=== PATIENT | male | born 1975 | race Hispanic/Latino ===

== ENCOUNTER 2019-03-21 12:03 | Emergency (ER) | payer OTHER ==
[~2019-03-21 12:03] MED LIST: FOLI1TAB15 PO; LIB25 PO; MVIT PO; THIA50TA2 PO
[2019-03-21] MEDS ORDERED: ASPIRIN 325 MG TABLET ONE (12:20)
[2019-03-21 12:32] LABS: BASOPHILS % (AUTO) 0.4 % (0.0-5.0); HEMATOCRIT 42.1 % (42-54); LYMPHOCYTES % (AUTO) 10.6 % (21.0-51.0); MEAN CORPUSCULAR HEMOGLOBIN 28.4 pg (27.0-33.0); MEAN CORPUSCULAR HGB CONC 34.4 g/dL (32.0-36.0); MEAN CORPUSCULAR VOLUME 82.5 fL (79-99); MONOCYTES % (AUTO) 6.2 % (3.0-13.0); NEUTROPHILS % (AUTO) 82.8 % (40.0-77.0); NUCLEATED RED BLOOD CELLS 0.1 % (0.0-0.19); PLATELET COUNT (AUTO) 163 K/uL (130-400); RED CELL DISTRIBUTION WIDTH 13.4 % (11.0-15.5)
[2019-03-21] MEDS ORDERED: SODIUM CHLORIDE 0.9% 1000ML 1,000 ML IV ONE (12:35)
[2019-03-21 12:42] LABS: INR 1.02 (0.85-1.15); PROTHROMBIN TIME 10.7 SEC (9.6-11.6)
[2019-03-21 12:44] LABS: APPEARANCE,URINE Clear (CLEAR); BILIRUBIN,URINE Negative (NEGATIVE); COLOR,URINE Yellow (YELLOW); GLUCOSE, URINE (UA) Negative (NEGATIVE); KETONES,URINE Negative (NEGATIVE); LEUKOCYTE ESTERASE ,URINE Negative (NEGATIVE); NITRATE,URINE Negative (NEGATIVE); OCCULT BLOOD,URINE Negative (NEGATIVE); PROTEIN,URINE Negative (NEGATIVE)
[2019-03-21 12:46] LABS: CREATININE 1.1 mg/dL (0.5-1.5); POTASSIUM 2.7 mmol/L (3.5-5.1)
[2019-03-21 12:54] LABS: AMPHET/METH SCREEN,URINE NEGATIVE (NEGATIVE); BARBITURATE SCREEN, URINE NEGATIVE (NEGATIVE); BENZODIAZEPINES SCREEN,URINE NEGATIVE (NEGATIVE); CANNABINOID SCREEN,URINE POSITIVE (NEGATIVE); COCAINE SCREEN,URINE NEGATIVE (NEGATIVE); OPIATE SCREEN,URINE NEGATIVE (NEGATIVE); PHENCYCLIDINE SCREEN,URINE NEGATIVE (NEGATIVE)
[2019-03-21 13:02] LABS: ALBUMIN 3.9 g/dL (3.5-5.0); BILIRUBIN,TOTAL 0.9 mg/dL (0.2-1.0)
[2019-03-21] MEDS ORDERED: POTASSIUM BICARB/CIT AC 25 MEQ TABLET.EFF ONE (13:02)
[2019-03-21] MEDS ORDERED: MAGNESIUM 2GM PREMIX 50ML 50 ML IV ONE (13:02)
[2019-03-21 13:04] LABS: ACETAMINOPHEN < 1 mcg/mL (10-29); SALICYLATE < 2.8 mg/dL (2.8-20.0)
[2019-03-21] MEDS ORDERED: DIAZEPAM 5 MG TABLET ONE (14:31)
== END 2019-03-21 16:47 | disposition home or self-care (01) ==
LOC: EDH 12:03
DX: F10.10 Alcohol abuse, uncomplicated (principal); R07.89 Other chest pain; R11.10 Vomiting, unspecified; F41.9 Anxiety disorder, unspecified; F12.10 Cannabis abuse, uncomplicated; Z90.49 Acquired absence of other specified parts of digestive tract; Z72.0 Tobacco use; Y90.9 Presence of alcohol in blood, level not specified
CPT/HCPCS: 36415; 71045; 80053; 80305; 81003; 82550; 83874; 84484; 85025; 85610; 85730; 93005; 96361; 96365; 99285; G0480 ×2; G0481; J3475; J7030

== ENCOUNTER 2019-12-24 08:30 | Emergency (ER) | payer OTHER, SELFPAY ==
[2019-12-24] MEDS ORDERED: SODIUM CHLORIDE 0.9% 1000ML 1,000 ML IV ONE (09:04)
[2019-12-24] MEDS ORDERED: ONDANSETRON HCL 4 MG/2 ML VIAL ONE (09:04)
[2019-12-24 09:45] LABS: APPEARANCE,URINE Clear (CLEAR); BILIRUBIN,URINE Negative (NEGATIVE); COLOR,URINE Yellow (YELLOW); GLUCOSE, URINE (UA) Negative (NEGATIVE); KETONES,URINE Trace mg/dL (NEGATIVE); LEUKOCYTE ESTERASE ,URINE Negative (NEGATIVE); NITRATE,URINE Negative (NEGATIVE); OCCULT BLOOD,URINE Negative (NEGATIVE); PH,URINE 5.5 (5.0-8.0); PROTEIN,URINE Trace mg/dL (NEGATIVE)
[2019-12-24 09:52] LABS: AMPHET/METH SCREEN,URINE NEGATIVE (NEGATIVE); BARBITURATE SCREEN, URINE NEGATIVE (NEGATIVE); BENZODIAZEPINES SCREEN,URINE NEGATIVE (NEGATIVE); CANNABINOID SCREEN,URINE POSITIVE (NEGATIVE); COCAINE SCREEN,URINE NEGATIVE (NEGATIVE); OPIATE SCREEN,URINE NEGATIVE (NEGATIVE); PHENCYCLIDINE SCREEN,URINE NEGATIVE (NEGATIVE)
[2019-12-24 10:05] LABS: INR 0.94 (0.85-1.15); PARTIAL THROMBOPLASTIN TIME 27.9 SEC (26.3-35.5); PROTHROMBIN TIME 10.2 SEC (9.6-11.6)
[2019-12-24 10:13] LABS: BASOPHILS % (AUTO) 0.9 % (0.0-5.0); EOSINOPHILS % (AUTO) 0.7 % (0.0-8.0); HEMATOCRIT 43.3 % (42-54); MEAN CORPUSCULAR HEMOGLOBIN 28.7 pg (27.0-33.0); MEAN CORPUSCULAR HGB CONC 34.6 g/dL (32.0-36.0); MONOCYTES % (AUTO) 8.5 % (3.0-13.0); NEUTROPHILS % (AUTO) 59.7 % (40.0-77.0); PLATELET COUNT (AUTO) 214 K/uL (130-400); RED BLOOD CELL COUNT(AUTO) 5.22 MIL/uL (4.50-6.20); RED CELL DISTRIBUTION WIDTH 12.4 % (11.0-15.5); WHITE BLOOD COUNT (AUTO) 5.4 K/uL (4.8-10.8)
[2019-12-24 10:16] LABS: BACTERIA,URINE Rare /HPF (None Seen); RBC,URINE 0-1 /HPF (0-1); SQUAMOUS EPITHELIAL CELL,UR Rare /HPF (0-2); WBC,URINE 0-1 /HPF (0-1)
[2019-12-24 10:22] LABS: ALBUMIN 3.9 g/dL (3.5-5.0); BILIRUBIN,TOTAL 0.8 mg/dL (0.2-1.0); CREATININE 1.1 mg/dL (0.5-1.5)
[2019-12-24] MEDS ORDERED: POTASSIUM CHLORIDE 20 MEQ ERTAB PO ONE (10:33)
[2019-12-24] MEDS ORDERED: SODIUM CHLORIDE 0.9% 1000ML 2,000 ML IV ONE (10:34)
[2019-12-24] MEDS ORDERED: DIPHENHYDRAMINE HCL 25 MG CAPSULE ONE (10:49)
== END 2019-12-24 14:41 | disposition home or self-care (01) ==
LOC: EDH 08:30
DX: F10.129 Alcohol abuse with intoxication, unspecified (principal); M62.82 Rhabdomyolysis; R11.2 Nausea with vomiting, unspecified; F41.9 Anxiety disorder, unspecified; F32.9 Major depressive disorder, single episode, unspecified; F12.10 Cannabis abuse, uncomplicated; Z90.49 Acquired absence of other specified parts of digestive tract; Z79.899 Other long term (current) drug therapy
CPT/HCPCS: 36415; 80053; 80305; 81001; 82550 ×2; 83690; 84484; 85025; 85610; 85730; 96361; 96374; 99285; G0480; J2405; J7030 ×2; Q0163

== ENCOUNTER 2020-02-09 07:21 | Emergency (ER) | payer SELFPAY ==
[2020-02-09] MEDS ORDERED: PROMETHAZINE HCL 25 MG/ML 1ML AMPULE IM ONE (07:22)
[2020-02-09] MEDS ORDERED: SODIUM CHLORIDE IRRIG SOLUTION 1,000 ML IR ONE (07:22)
[2020-02-09 07:48] LABS: BASOPHILS % (AUTO) 0.7 % (0.0-5.0); EOSINOPHILS % (AUTO) 2.7 % (0.0-8.0); HEMATOCRIT 46.8 % (42-54); MEAN CORPUSCULAR HEMOGLOBIN 28.4 pg (27.0-33.0); MEAN CORPUSCULAR HGB CONC 34.8 g/dL (32.0-36.0); MEAN CORPUSCULAR VOLUME 81.5 fL (79-99); MONOCYTES % (AUTO) 8.1 % (3.0-13.0); NEUTROPHILS % (AUTO) 68.1 % (40.0-77.0); PLATELET COUNT (AUTO) 241 K/uL (130-400); RED BLOOD CELL COUNT(AUTO) 5.74 MIL/uL (4.50-6.20)
[2020-02-09 07:58] LABS: APPEARANCE,URINE CLEAR (CLEAR); BILIRUBIN,URINE SMALL (NEGATIVE); COLOR,URINE YELLOW (YELLOW); GLUCOSE, URINE (UA) NEGATIVE (NEGATIVE); KETONES,URINE 15 mg/dL (NEGATIVE); LEUKOCYTE ESTERASE ,URINE NEGATIVE (NEGATIVE); NITRATE,URINE NEGATIVE (NEGATIVE); OCCULT BLOOD,URINE MODERATE (NEGATIVE); PROTEIN,URINE 100 mg/dL (NEGATIVE); UROBILINOGEN,URINE 0.2 mg/dL (0.2-1.0)
[2020-02-09 08:01] LABS: CARBON DIOXIDE 26 mmol/L (21-32); CHLORIDE 92 mmol/L (101-111); CREATININE 1.3 mg/dL (0.5-1.5); GLOMERULAR FILTR. RATE CALC 63 mL/min (>60); GLUCOSE,RANDOM 160 mg/dL (70-105); POTASSIUM 4.1 mmol/L (3.5-5.1); SODIUM SERUM 133 mmol/L (136-145); UREA NITROGEN, BLOOD 13 mg/dL (7-18)
[2020-02-09 08:05] LABS: ALANINE AMINOTRANSFERASE 31 U/L (12-78); ALBUMIN 4.6 g/dL (3.5-5.0); ALCOHOL, BLOOD 162 mg/dL (0-10); ASPARTATE AMINOTRANSFERASE 55 U/L (10-37); BILIRUBIN,TOTAL 1.3 mg/dL (0.2-1.0); TOTAL PROTEIN, SERUM 8.9 g/dL (6.0-8.3)
[2020-02-09 08:06] LABS: AMPHET/METH SCREEN,URINE NEGATIVE (NEGATIVE); BARBITURATE SCREEN, URINE NEGATIVE (NEGATIVE); BENZODIAZEPINES SCREEN,URINE NEGATIVE (NEGATIVE); CANNABINOID SCREEN,URINE POSITIVE (NEGATIVE); COCAINE SCREEN,URINE NEGATIVE (NEGATIVE); OPIATE SCREEN,URINE NEGATIVE (NEGATIVE); PHENCYCLIDINE SCREEN,URINE NEGATIVE (NEGATIVE)
[2020-02-09 08:06] LABS: ACETAMINOPHEN < 1 mcg/mL (10-29); SALICYLATE < 2.8 mg/dL (2.8-20.0)
[2020-02-09 08:09] LABS: RBC,URINE 0-1 /HPF (0-1); WBC,URINE 0-1 /HPF (0-1)
[2020-02-09 08:10] LABS: AMORPHOUS SEDIMENT,UR Moderate /LPF (None Seen); BACTERIA,URINE Few /HPF (None Seen); MUCUS,URINE Many LPF (None Seen); SQUAMOUS EPITHELIAL CELL,UR Rare /HPF (0-2)
[2020-02-09] MEDS ORDERED: ONDANSETRON HCL 4 MG/2 ML VIAL ONE ×2 (08:55→11:58)
== END 2020-02-09 14:39 | disposition home or self-care (01) ==
LOC: EDH 07:21
DX: K29.00 Acute gastritis without bleeding (principal); F10.10 Alcohol abuse, uncomplicated; F19.10 Other psychoactive substance abuse, uncomplicated; F41.9 Anxiety disorder, unspecified; F32.9 Major depressive disorder, single episode, unspecified; F12.10 Cannabis abuse, uncomplicated; Z90.49 Acquired absence of other specified parts of digestive tract
CPT/HCPCS: 36415; 80053; 80305; 81001; 85025; 93005; 96361; 96374; 96375; 96376; 99284; G0480 ×2; G0481; J2405 ×2; J2550

== ENCOUNTER 2020-03-14 08:24 | Emergency (ER) | payer SELFPAY ==
[2020-03-14 09:09] LABS: BASOPHILS % (AUTO) 0.8 % (0.0-5.0); EOSINOPHILS % (AUTO) 0.2 % (0.0-8.0); HEMATOCRIT 48.8 % (42-54); LYMPHOCYTES % (AUTO) 30.1 % (21.0-51.0); MEAN CORPUSCULAR HEMOGLOBIN 28.6 pg (27.0-33.0); MEAN CORPUSCULAR HGB CONC 34.2 g/dL (32.0-36.0); MEAN CORPUSCULAR VOLUME 83.6 fL (79-99); MONOCYTES % (AUTO) 5.2 % (3.0-13.0); NEUTROPHILS % (AUTO) 63.3 % (40.0-77.0); PLATELET COUNT (AUTO) 189 K/uL (130-400); RED BLOOD CELL COUNT(AUTO) 5.84 MIL/uL (4.50-6.20); RED CELL DISTRIBUTION WIDTH 12.8 % (11.0-15.5); WHITE BLOOD COUNT (AUTO) 5.2 K/uL (4.8-10.8)
[2020-03-14] MEDS ORDERED: ONDANSETRON HCL 4 MG/2 ML VIAL ONE (09:12)
[2020-03-14] MEDS ORDERED: SODIUM CHLORIDE 0.9% 1000ML 1,000 ML IV ONE (09:13)
[2020-03-14 09:34] LABS: CARBON DIOXIDE 20 mmol/L (21-32); CHLORIDE 98 mmol/L (101-111); CREATININE 1.2 mg/dL (0.5-1.5); GLOMERULAR FILTR. RATE CALC 69 mL/min (>60); GLUCOSE,RANDOM 159 mg/dL (70-105); POTASSIUM 3.1 mmol/L (3.5-5.1); SODIUM SERUM 134 mmol/L (136-145); UREA NITROGEN, BLOOD 9 mg/dL (7-18)
[2020-03-14 09:39] LABS: ALANINE AMINOTRANSFERASE 33 U/L (12-78); ALBUMIN 4.1 g/dL (3.5-5.0); ASPARTATE AMINOTRANSFERASE 34 U/L (10-37); BILIRUBIN,TOTAL 0.6 mg/dL (0.2-1.0); SALICYLATE 3.3 mg/dL (2.8-20.0); TOTAL PROTEIN, SERUM 8.2 g/dL (6.0-8.3)
[2020-03-14 10:00] LABS: ACETAMINOPHEN < 1 mcg/mL (10-29)
[2020-03-14 10:01] LABS: ALCOHOL, BLOOD 240 mg/dL (0-10)
[2020-03-14 10:22] LABS: APPEARANCE,URINE Clear (CLEAR); BILIRUBIN,URINE Negative (NEGATIVE); COLOR,URINE Yellow (YELLOW); GLUCOSE, URINE (UA) Negative (NEGATIVE); KETONES,URINE 40 mg/dL (NEGATIVE); LEUKOCYTE ESTERASE ,URINE Negative (NEGATIVE); NITRATE,URINE Negative (NEGATIVE); OCCULT BLOOD,URINE Negative (NEGATIVE); PROTEIN,URINE POS 2+ mg/dL (NEGATIVE)
[2020-03-14 10:28] LABS: AMPHET/METH SCREEN,URINE NEGATIVE (NEGATIVE); BARBITURATE SCREEN, URINE NEGATIVE (NEGATIVE); BENZODIAZEPINES SCREEN,URINE NEGATIVE (NEGATIVE); CANNABINOID SCREEN,URINE POSITIVE (NEGATIVE); COCAINE SCREEN,URINE NEGATIVE (NEGATIVE); OPIATE SCREEN,URINE NEGATIVE (NEGATIVE); PHENCYCLIDINE SCREEN,URINE NEGATIVE (NEGATIVE)
[2020-03-14 11:18] LABS: RBC,URINE 0-1 /HPF (0-1); WBC,URINE 0-1 /HPF (0-1)
[2020-03-14 11:19] LABS: BACTERIA,URINE None Seen /HPF (None Seen); SQUAMOUS EPITHELIAL CELL,UR 0-2 /HPF (0-2)
[2020-03-14] MEDS ORDERED: POTASSIUM BICARB/CIT AC 25 MEQ TABLET.EFF ONE (11:51)
== END 2020-03-14 12:35 | disposition left against medical advice (07) ==
LOC: EDH 08:24
DX: F41.9 Anxiety disorder, unspecified (principal); F32.9 Major depressive disorder, single episode, unspecified; Z90.49 Acquired absence of other specified parts of digestive tract
CPT/HCPCS: 36415; 80053; 80305; 81001; 85025; 93005; 96374; 96375; 99285; G0480 ×2; G0481; J2405; J7030

== ENCOUNTER 2020-06-04 12:52 | Inpatient (IN) | payer SELFPAY ==
[~2020-06-04] VITALS: Ht 172.7 cm; Wt 95.2 kg
[2020-06-04] MEDS ORDERED: THIAMINE HCL 100 MG/ML 2ML VIAL ONE (13:15)
[2020-06-04] MEDS ORDERED: SODIUM CHLORIDE 0.9% 1000ML 1,000 ML IV ONE ×2 (13:15→14:57)
[2020-06-04 13:22] LABS: BASOPHILS % (AUTO) 0.6 % (0.0-5.0); EOSINOPHILS % (AUTO) 0.2 % (0.0-8.0); HEMATOCRIT 47.8 % (42-54); LYMPHOCYTES % (AUTO) 9.9 % (21.0-51.0); MEAN CORPUSCULAR HEMOGLOBIN 28.7 pg (27.0-33.0); MEAN CORPUSCULAR HGB CONC 35.1 g/dL (32.0-36.0); MEAN CORPUSCULAR VOLUME 81.6 fL (79-99); MONOCYTES % (AUTO) 6.2 % (3.0-13.0); NEUTROPHILS % (AUTO) 82.8 % (40.0-77.0); PLATELET COUNT (AUTO) 210 K/uL (130-400); RED BLOOD CELL COUNT(AUTO) 5.86 MIL/uL (4.50-6.20); WHITE BLOOD COUNT (AUTO) 10.2 K/uL (4.8-10.8)
[2020-06-04 13:25] LABS: APPEARANCE,URINE CLEAR (CLEAR); BILIRUBIN,URINE SMALL (NEGATIVE); GLUCOSE, URINE (UA) NEGATIVE (NEGATIVE); KETONES,URINE 40 mg/dL (NEGATIVE); LEUKOCYTE ESTERASE ,URINE NEGATIVE (NEGATIVE); NITRATE,URINE NEGATIVE (NEGATIVE); OCCULT BLOOD,URINE SMALL (NEGATIVE); PROTEIN,URINE >=300 mg/dL (NEGATIVE)
[2020-06-04 13:28] LABS: AMPHET/METH SCREEN,URINE NEGATIVE (NEGATIVE); BARBITURATE SCREEN, URINE NEGATIVE (NEGATIVE); BENZODIAZEPINES SCREEN,URINE NEGATIVE (NEGATIVE); CANNABINOID SCREEN,URINE POSITIVE (NEGATIVE); COCAINE SCREEN,URINE POSITIVE (NEGATIVE); OPIATE SCREEN,URINE NEGATIVE (NEGATIVE); PHENCYCLIDINE SCREEN,URINE NEGATIVE (NEGATIVE)
[2020-06-04 13:35] LABS: CARBON DIOXIDE 25 mmol/L (21-32); CHLORIDE 96 mmol/L (101-111); CREATININE 1.2 mg/dL (0.5-1.5); GLOMERULAR FILTR. RATE CALC 69 mL/min (>60); GLUCOSE,RANDOM 138 mg/dL (70-105); POTASSIUM 3.4 mmol/L (3.5-5.1); SODIUM SERUM 136 mmol/L (136-145); UREA NITROGEN, BLOOD 10 mg/dL (7-18)
[2020-06-04 13:40] LABS: COLOR,URINE DARK YELLOW (YELLOW)
[2020-06-04] MEDS ORDERED: ONDANSETRON HCL 4 MG/2 ML VIAL ONE ×2 (13:42→17:53)
[2020-06-04 13:44] LABS: BACTERIA,URINE Few /HPF (None Seen); MUCUS,URINE Many LPF (None Seen); RBC,URINE 0-1 /HPF (0-1); SQUAMOUS EPITHELIAL CELL,UR Rare /HPF (0-2)
[2020-06-04 13:48] LABS: ALANINE AMINOTRANSFERASE 32 U/L (12-78); ALBUMIN 4.6 g/dL (3.5-5.0); ASPARTATE AMINOTRANSFERASE 39 U/L (10-37); BILIRUBIN,TOTAL 1.2 mg/dL (0.2-1.0); TOTAL PROTEIN, SERUM 8.7 g/dL (6.0-8.3)
[2020-06-04 13:55] LABS: CREATINE KINASE, TOTAL 573 U/L (21-232); SALICYLATE < 2.8 mg/dL (2.8-20.0)
[2020-06-04] MEDS ORDERED: LORAZEPAM 2 MG/ML 1 ML VIAL ONE ×4 (13:56→22:29)
[2020-06-04 13:59] LABS: ACETAMINOPHEN < 1 mcg/mL (10-29)
[2020-06-04] MEDS: LACTATED RINGERS 1000ML 1,000 ML IV SCH (15:51)
[2020-06-04] MEDS ORDERED: PHARMACY COMMUNICATION MISC PRN (16:00)
[2020-06-04] MEDS ORDERED: LACTULOSE 20 GM/30 ML UDCUP PO PRN (16:00)
[2020-06-04] MEDS ORDERED: CHLORDIAZEPOXIDE HCL 25 MG CAP ONE (17:53)
[2020-06-04] MEDS ORDERED: M.V.I. IV [ADULT] 10 ML VIAL IV ONE (20:10)
[2020-06-04] MEDS ORDERED: FOLIC ACID 5 MG/ML 10 ML VIAL ONE (20:11)
[2020-06-04] MEDS: HEPARIN SODIUM 5000UNIT/ML 1ML VIAL SQ SCH (21:00)
[2020-06-04] MEDS: FAMOTIDINE/PF 20 MG/2 ML VIAL IV SCH (21:00)
[2020-06-04] MEDS ORDERED: HEPARIN SODIUM 5000UNIT/ML 1ML VIAL ONE (22:29)
[2020-06-04] MEDS ORDERED: FAMOTIDINE/PF 20 MG/2 ML VIAL IV ONE (22:30)
--- NOTE | 2020-06-04 23:00 | NUR ---
ADMIT PT ADMITTED TO ROOM 322, SLEEPY BUT RESPOND ON VERBAL COMMAND AND IS COHERENT. ADMISSION CARE DONE. ADMISSION DATA BASE COMPLETED. CONTINUED BANANA BAG FROM ER REGULATED AT 100CC/HR. KEPT COMFORTABLE AND RESTED WITH HOB ELEVATED. ORIENTED TO ROOM AND UNIT. IN FOR MORE CARE AND MANAGEMENT. Addendum: 06/04/20 at 2332 by PERICO COX RN RN Amended: Links added.
[2020-06-04] MEDS ORDERED: GABA-529 PO (23:01)
[2020-06-04] MEDS ORDERED: BUSP15 PO ×2 (23:01)
[2020-06-04] MEDS ORDERED: FLUO20CA30 PO (23:01)
[2020-06-04 23:52] VITALS: BP 138/83
[2020-06-05] MEDS: LACTATED RINGERS 1000ML 1,000 ML IV SCH ×3 (01:51→21:21)
--- NOTE | 2020-06-05 02:00 | NUR ---
ROUNDS PT FAIRLY ASLEEP WITH RESPIRATIONS EVEN AND UNLABORED. NO NOTED DISTRESS. KEPT RESTED AND COMFORTABLE. CALL LIGHT WITHIN REACH. WILL MONITOR CLOSELY.
[2020-06-05 04:46] VITALS: BP 137/87
[2020-06-05 05:20] LABS: BASOPHILS % (AUTO) 0.8 % (0.0-5.0); EOSINOPHILS % (AUTO) 0.4 % (0.0-8.0); HEMATOCRIT 39.9 % (42-54); LYMPHOCYTES % (AUTO) 20.1 % (21.0-51.0); MEAN CORPUSCULAR HGB CONC 34.6 g/dL (32.0-36.0); MEAN CORPUSCULAR VOLUME 83.8 fL (79-99); MONOCYTES % (AUTO) 7.8 % (3.0-13.0); NEUTROPHILS % (AUTO) 70.6 % (40.0-77.0); PLATELET COUNT (AUTO) 156 K/uL (130-400); RED BLOOD CELL COUNT(AUTO) 4.76 MIL/uL (4.50-6.20); WHITE BLOOD COUNT (AUTO) 7.7 K/uL (4.8-10.8)
--- NOTE | 2020-06-05 05:35 | NUR ---
ROUNDS PT RESTING WELL. NO CONCERNS VERBALIZED. NO DISTRESS NOTED. FOR MORE CARE AND MANAGEMENT.
[2020-06-05 05:45] LABS: ALBUMIN 3.4 g/dL (3.5-5.0); BILIRUBIN,TOTAL 1.4 mg/dL (0.2-1.0); CREATININE 1.1 mg/dL (0.5-1.5); PHOSPHORUS 3.1 mg/dL (2.5-4.9); POTASSIUM 3.6 mmol/L (3.5-5.1); TOTAL PROTEIN, SERUM 6.7 g/dL (6.0-8.3)
[2020-06-05] MEDS ORDERED: PHARMACY COMMUNICATION MISC SCH (05:45)
[2020-06-05 07:30] VITALS: BP 145/83
--- NOTE | 2020-06-05 08:57 | NUR ---
NAUSEA and ANXIETY pt complain of nausea zofran iv,ativan iv given as ordered
[2020-06-05] MEDS: FAMOTIDINE/PF 20 MG/2 ML VIAL IV SCH ×2 (09:04→21:12)
[2020-06-05] MEDS: HEPARIN SODIUM 5000UNIT/ML 1ML VIAL SQ SCH ×3 (09:06→21:12)
[2020-06-05] MEDS: ONDANSETRON HCL 4 MG/2 ML VIAL IV PRN ×2 (09:08→17:44)
[2020-06-05] MEDS: LORAZEPAM 2 MG/ML 1 ML VIAL IVP PRN ×2 (09:09→17:45)
[2020-06-05] MEDS: M.V.I. IV [ADULT] 10 ML, THIAMINE HCL 100 MG, FOLIC ACID 1 MG in SODIUM CHLORIDE 0.9% 1... IV SCH (09:29)
[2020-06-05] MEDS: THIAMINE HCL 100 MG/ML 2ML VIAL IM SCH (09:32)
[2020-06-05] MEDS: MULTIVITAMIN TABLET PO SCH (09:32)
[2020-06-05] MEDS: FOLIC ACID 1 MG TABLET PO SCH (09:32)
[2020-06-05 11:00] VITALS: BP 128/83
--- NOTE | 2020-06-05 11:30 | NUR ---
SS Referral for Drug Use SW met with pt. who reports that he was in the process of being admitted to [facility] for etoh/substance use when he was transferred to this facility. According to pt., he is to return to [place] post discharge fro hospital. Pt. reports that he is , has a 27y child who resides out of town and that resides with his 64y mother. 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 Pt. has been contacted by [facility] for financial assistance. Pt. denies any thoughts to harm self or others, states that he just wants to get better and that is why he was sent to [facility]. Pt. reports that he is under the services of [facility]; medieval english literature professor Naomi Case and Dr. Rodgers for medications of Prozac and Buspar for BPD and that he has a follow up appointment in 2weeks. Pt. reported a history of inpatient psych at [facility] 7y ago and inpatient at [facility] in [place] for substance use. Pt. acknowledges current use of marijuana; denies current use of Cocaine, stating that it has been two months since his last use. Pt. provided with additional information on Substance Use and Community Resources. Pt. voiced no SS needs or concerns. SW to follow up with [facility]. Addendum: 06/05/20 at 1605 by ROCKY LANCE Amended: Links added.
--- NOTE | 2020-06-05 15:30 | NUR ---
RENÉE spoke w/Lauren at [facility] [employer] and reports that pt. would have had to return to [facility] by 4p today in order that he be covered under the contract w/[facility]. Per Lauren, pt. is to contact the [facility] post discharge from [facility] at [phone] and request to be screened; [facility] will inform pt. if can return to [facility] at that point. RENÉE provided this information in writing to pt. and explained that he is to contact [facility] after he is dismissed from [facility]. RENÉE also provided OMID David copy of written instruction for pt.; HIRAL also made aware.
[2020-06-05 16:08] VITALS: BP 139/85
--- NOTE | 2020-06-05 16:48 | NUR ---
HIRAL NOTE/IA UNABLE TO MEET WITH PATIENT IN ROOM, NEXT OF KIN CALLED, DAHIANA JIMENES. PER MOTHER, PATIENT LIVES WITH HER, INDEPENDENT WITH ADLS, NO USE OF DME OR HOME HEALTH, IS A PATIENT OF [facility], WAS AT [facility] BEFORE [facility] ADMISSION BUT FEELS SAFE FOR PATIENT TO RETURN IF MEDICALLY CLEARED. ALSO HAS USE OF [facility] ON [address]. Addendum: 06/05/20 at 1650 by LESLIE LANCE RN CM Amended: Links added.
[2020-06-05] MEDS: CHLORDIAZEPOXIDE HCL 25 MG CAP PO PRN ×2 (17:41→21:11)
--- NOTE | 2020-06-05 20:20 | NUR ---
FAMILY mother called Emailage phone states she is worried about son not answering her calls explained to mother pt received medication for anxiety explained to mother was in room lam 10 min ago but would check on him and let him know she was calling voices understanding
[2020-06-05 20:26] VITALS: BP 132/82
[2020-06-05 23:41] VITALS: BP 122/84
[2020-06-06 03:55] VITALS: BP 130/82
[2020-06-06] MEDS: LORAZEPAM 2 MG/ML 1 ML VIAL IVP PRN ×6 (04:47→23:03)
[2020-06-06] MEDS: LACTATED RINGERS 1000ML 1,000 ML IV SCH ×2 (05:01→17:51)
[2020-06-06 05:41] LABS: BASOPHILS % (AUTO) 0.7 % (0.0-5.0); EOSINOPHILS % (AUTO) 1.7 % (0.0-8.0); HEMATOCRIT 39.7 % (42-54); LYMPHOCYTES % (AUTO) 23.9 % (21.0-51.0); MEAN CORPUSCULAR HEMOGLOBIN 29.4 pg (27.0-33.0); MEAN CORPUSCULAR HGB CONC 35.5 g/dL (32.0-36.0); MEAN CORPUSCULAR VOLUME 82.7 fL (79-99); MONOCYTES % (AUTO) 6.5 % (3.0-13.0); NEUTROPHILS % (AUTO) 67.1 % (40.0-77.0); PLATELET COUNT (AUTO) 140 K/uL (130-400); RED CELL DISTRIBUTION WIDTH 12.4 % (11.0-15.5); WHITE BLOOD COUNT (AUTO) 6.9 K/uL (4.8-10.8)
[2020-06-06 06:19] LABS: ALBUMIN 3.4 g/dL (3.5-5.0); BILIRUBIN,TOTAL 1.2 mg/dL (0.2-1.0); CREATININE 0.9 mg/dL (0.5-1.5); POTASSIUM 3.3 mmol/L (3.5-5.1); TOTAL PROTEIN, SERUM 6.8 g/dL (6.0-8.3)
--- NOTE | 2020-06-06 06:50 | NUR ---
POTASSIUM 3.3 Reported to Anna Willoughby A OPERATOR with an order to place pt on PO POTASSIUM PROTOCOL.
[2020-06-06] MEDS ORDERED: LIDOCAINE HCL-MPF 1% 2ML VIAL IV PRN (07:00)
[2020-06-06] MEDS ORDERED: POTASSIUM CHLORIDE 20MEQ/100ML 100 ML IV PRN (07:00)
[2020-06-06] MEDS ORDERED: POTASSIUM CHLORIDE 10% ELIXIR 20 MEQ/15 ML UDCUP PO PRN (07:00)
[2020-06-06 08:37] VITALS: BP 131/83
[2020-06-06] MEDS: M.V.I. IV [ADULT] 10 ML, THIAMINE HCL 100 MG, FOLIC ACID 1 MG in SODIUM CHLORIDE 0.9% 1... IV SCH (09:21)
[2020-06-06] MEDS: FAMOTIDINE/PF 20 MG/2 ML VIAL IV SCH ×2 (09:23→23:06)
[2020-06-06] MEDS: MULTIVITAMIN TABLET PO SCH (09:25)
[2020-06-06] MEDS: FOLIC ACID 1 MG TABLET PO SCH (09:25)
[2020-06-06] MEDS: ONDANSETRON HCL 4 MG/2 ML VIAL IV PRN (09:27)
[2020-06-06] MEDS: CHLORDIAZEPOXIDE HCL 25 MG CAP PO PRN ×3 (09:28→20:21)
[2020-06-06] MEDS: THIAMINE HCL 100 MG/ML 2ML VIAL IM SCH (09:29)
[2020-06-06] MEDS: HEPARIN SODIUM 5000UNIT/ML 1ML VIAL SQ SCH ×3 (09:39→23:05)
[2020-06-06] MEDS: POTASSIUM CHLORIDE 20 MEQ ERTAB PO PRN ×2 (09:42→15:29)
[2020-06-06 11:21] VITALS: BP 128/82
--- NOTE | 2020-06-06 12:30 | NUR ---
IV PULLED OUT pt pulled iv out bleeding from site cleaned fingers and hands with soap and water pt states sorry I didnt know I did that restarted iv 20 gauge jelco left forearm Elidia ASSISTANT TO THE DEAN reported pt urinated in the water picture and also urinated in the floor
--- NOTE | 2020-06-06 14:00 | NUR ---
SHOWER pt took shower after showering walked into the hallway where is my room , pt confused
--- NOTE | 2020-06-06 14:30 | NUR ---
FAMILY mother called stated that pt was confused when he called her on the phone i discussed events that took place today ,mother states he gets very aggressive he lives here with me I am 68 years old and I want him to go to the [place] when discharged for rehab
[2020-06-06 16:53] VITALS: BP 138/99
--- NOTE | 2020-06-06 17:00 | NUR ---
pt aggressive wants to go home states family is on their way to pick him up spoke with mother states no she is not picking him up
[2020-06-06] MEDS: OLANZAPINE ODT 5 MG TAB SL SCH ×2 (17:55→18:00)
[2020-06-06] MEDS: ZIPRASIDONE MESYLATE 20 MG/VIAL IM SCH ×2 (18:14→21:16)
[2020-06-06 20:09] VITALS: BP 114/76
[2020-06-07] MEDS: LACTATED RINGERS 1000ML 1,000 ML IV SCH (03:51)
[2020-06-07] MEDS: OLANZAPINE ODT 5 MG TAB SL SCH ×4 (05:58→18:07)
[2020-06-07 06:37] LABS: BASOPHILS % (AUTO) 0.2 % (0.0-5.0); HEMATOCRIT 45.3 % (42-54); LYMPHOCYTES % (AUTO) 6.1 % (21.0-51.0); MEAN CORPUSCULAR HEMOGLOBIN 28.9 pg (27.0-33.0); MEAN CORPUSCULAR HGB CONC 34.9 g/dL (32.0-36.0); MEAN CORPUSCULAR VOLUME 82.8 fL (79-99); MONOCYTES % (AUTO) 5.1 % (3.0-13.0); NEUTROPHILS % (AUTO) 88.2 % (40.0-77.0); PLATELET COUNT (AUTO) 140 K/uL (130-400); RED BLOOD CELL COUNT(AUTO) 5.47 MIL/uL (4.50-6.20); RED CELL DISTRIBUTION WIDTH 12.7 % (11.0-15.5); WHITE BLOOD COUNT (AUTO) 15.9 K/uL (4.8-10.8)
[2020-06-07 06:52] LABS: ALBUMIN 4.3 g/dL (3.5-5.0); BILIRUBIN,TOTAL 1.1 mg/dL (0.2-1.0); CREATININE 1.6 mg/dL (0.5-1.5); POTASSIUM 3.7 mmol/L (3.5-5.1); TOTAL PROTEIN, SERUM 8.4 g/dL (6.0-8.3)
[2020-06-07 07:30] VITALS: BP 154/92
--- NOTE | 2020-06-07 09:10 | NUR ---
patient remains restless combative aox1 person. on restraints assessed q2hrs. diapers changed and food provided.
[2020-06-07 11:00] VITALS: BP 121/91
[2020-06-07] MEDS: MULTIVITAMIN TABLET PO SCH (11:00)
[2020-06-07] MEDS: THIAMINE HCL 100 MG/ML 2ML VIAL IM SCH (11:00)
[2020-06-07] MEDS: FOLIC ACID 1 MG TABLET PO SCH (11:00)
[2020-06-07] MEDS: FAMOTIDINE/PF 20 MG/2 ML VIAL IV SCH ×2 (11:01→22:20)
[2020-06-07] MEDS: HEPARIN SODIUM 5000UNIT/ML 1ML VIAL SQ SCH ×3 (11:06→22:17)
[2020-06-07] MEDS: ZIPRASIDONE MESYLATE 20 MG/VIAL IM SCH ×3 (11:34→22:39)
[2020-06-07] MEDS: LORAZEPAM 2 MG/ML 1 ML VIAL IVP PRN (12:28)
--- NOTE | 2020-06-07 13:20 | NUR ---
ATTEMPTED TO INSERT IV PATIENT REMAINS AGGRESSIVE. AND UNCOOPERATIVE.
--- NOTE | 2020-06-07 13:55 | NUR ---
PT ON ONE TO ONE REMAINS RESTLESS, COMBATIVE, UNCOOPERATIVE, AND AGGRESSIVE. PRN MEDICATIONS GIVEN. SEE EMAR.
[2020-06-07 16:00] VITALS: BP 135/95
--- NOTE | 2020-06-07 16:00 | NUR ---
RESTRAINTS REMOVED PATIENT CALMING DOWN, SHOWERED. MORE COOPERATIVE, BUT REMAINS DELUSIONAL. REMAINS ON 1 TO 1.
[2020-06-07] MEDS: CHLORDIAZEPOXIDE HCL 25 MG CAP PO PRN (16:14)
--- NOTE | 2020-06-07 16:20 | NUR ---
ATTEMPTED TO PLACE IV UNSUCCESSFUL PATIENT COMBATIVE AND UNCOOPERATIVE. KICKING AND PUNCHING.
[2020-06-07 21:45] VITALS: BP 129/90
[2020-06-07 23:25] VITALS: BP 122/85
[2020-06-08 04:00] VITALS: BP 125/93
[2020-06-08 05:16] LABS: BASOPHILS % (AUTO) 0.5 % (0.0-5.0); EOSINOPHILS % (AUTO) 0.8 % (0.0-8.0); HEMATOCRIT 45.8 % (42-54); LYMPHOCYTES % (AUTO) 11.6 % (21.0-51.0); MEAN CORPUSCULAR HEMOGLOBIN 29.1 pg (27.0-33.0); MEAN CORPUSCULAR HGB CONC 34.5 g/dL (32.0-36.0); MEAN CORPUSCULAR VOLUME 84.3 fL (79-99); MONOCYTES % (AUTO) 6.1 % (3.0-13.0); NEUTROPHILS % (AUTO) 80.6 % (40.0-77.0); PLATELET COUNT (AUTO) 148 K/uL (130-400); RED BLOOD CELL COUNT(AUTO) 5.43 MIL/uL (4.50-6.20); RED CELL DISTRIBUTION WIDTH 13.2 % (11.0-15.5); WHITE BLOOD COUNT (AUTO) 13.3 K/uL (4.8-10.8)
[2020-06-08 05:45] LABS: ALBUMIN 3.9 g/dL (3.5-5.0); BILIRUBIN,TOTAL 1.1 mg/dL (0.2-1.0); CREATININE 1.3 mg/dL (0.5-1.5); POTASSIUM 3.6 mmol/L (3.5-5.1); TOTAL PROTEIN, SERUM 8.1 g/dL (6.0-8.3)
[2020-06-08] MEDS: OLANZAPINE ODT 5 MG TAB SL SCH ×4 (05:49→11:59)
[2020-06-08] MEDS: ZIPRASIDONE MESYLATE 20 MG/VIAL IM SCH (05:49)
[2020-06-08 08:00] VITALS: BP 121/82
[2020-06-08] MEDS: M.V.I. IV [ADULT] 10 ML, THIAMINE HCL 100 MG, FOLIC ACID 1 MG in SODIUM CHLORIDE 0.9% 1... IV SCH ×2 (09:00→12:36)
[2020-06-08] MEDS: MULTIVITAMIN TABLET PO SCH (11:35)
[2020-06-08] MEDS: FAMOTIDINE/PF 20 MG/2 ML VIAL IV SCH ×2 (11:36→21:38)
[2020-06-08] MEDS: HEPARIN SODIUM 5000UNIT/ML 1ML VIAL SQ SCH ×3 (11:37→21:00)
[2020-06-08 12:00] VITALS: BP 123/86
[2020-06-08] MEDS ORDERED: ZIPRASIDONE MESYLATE 20 MG/VIAL IM PRN (12:30)
[2020-06-08 16:00] VITALS: BP 144/89
[2020-06-08] MEDS: ACETAMINOPHEN 325 MG TAB PO PRN (19:20)
--- NOTE | 2020-06-08 19:25 | NUR ---
PM Assessment Received pt remain on 1:1 but noted calm at this time, sleepy, easily awaken, oriented to name & place, re-oriented to time. Pt claimed feeling generalized body soreness, acknowledges that he was restrain for being aggressive but claimed he does not recall it at all. Pt made aware that he was just medicated with Tylenol not too long ago. Per pt stated he had started drinking Beer at the age of 12 y/o & added he will try to quit. Pt reminded to make sure to stay in bed & Juan the sitter at this time is around to assist him, agreed.
[2020-06-08 21:13] VITALS: BP 130/79
[2020-06-09] VITALS (7 sets, daily range): BP systolic 121–137; BP diastolic 77–97
[2020-06-09] MEDS: OLANZAPINE ODT 5 MG TAB SL SCH ×5 (00:15→23:19)
[2020-06-09] MEDS: CHLORDIAZEPOXIDE HCL 25 MG CAP PO PRN ×2 (02:48→23:19)
[2020-06-09 05:18] LABS: BASOPHILS % (AUTO) 0.6 % (0.0-5.0); EOSINOPHILS % (AUTO) 6.4 % (0.0-8.0); HEMATOCRIT 42.5 % (42-54); LYMPHOCYTES % (AUTO) 24.4 % (21.0-51.0); MEAN CORPUSCULAR HGB CONC 33.9 g/dL (32.0-36.0); MEAN CORPUSCULAR VOLUME 85.7 fL (79-99); MONOCYTES % (AUTO) 8.5 % (3.0-13.0); NEUTROPHILS % (AUTO) 59.7 % (40.0-77.0); PLATELET COUNT (AUTO) 132 K/uL (130-400); RED BLOOD CELL COUNT(AUTO) 4.96 MIL/uL (4.50-6.20); RED CELL DISTRIBUTION WIDTH 13.2 % (11.0-15.5); WHITE BLOOD COUNT (AUTO) 8.3 K/uL (4.8-10.8)
[2020-06-09 05:43] LABS: ALBUMIN 3.1 g/dL (3.5-5.0); BILIRUBIN,TOTAL 0.9 mg/dL (0.2-1.0); POTASSIUM 3.4 mmol/L (3.5-5.1); TOTAL PROTEIN, SERUM 6.8 g/dL (6.0-8.3)
[2020-06-09] MEDS: LACTATED RINGERS 1000ML 1,000 ML IV SCH ×2 (05:46→23:19)
[2020-06-09] MEDS: POTASSIUM CHLORIDE 20 MEQ ERTAB PO PRN ×2 (05:56→10:10)
[2020-06-09] MEDS: MULTIVITAMIN TABLET PO SCH (10:10)
[2020-06-09] MEDS: FAMOTIDINE/PF 20 MG/2 ML VIAL IV SCH ×2 (10:10→19:58)
[2020-06-09] MEDS: HEPARIN SODIUM 5000UNIT/ML 1ML VIAL SQ SCH ×3 (10:11→19:58)
[2020-06-09] MEDS: ACETAMINOPHEN 325 MG TAB PO PRN ×2 (10:38→17:38)
[2020-06-10] MEDS: ACETAMINOPHEN EXTRA STRENGTH 500 MG TABLET PO PRN (03:02)
[2020-06-10 03:46] VITALS: BP 148/92
[2020-06-10] MEDS: OLANZAPINE ODT 5 MG TAB SL SCH ×3 (05:14→18:42)
[2020-06-10 05:21] LABS: BASOPHILS % (AUTO) 0.7 % (0.0-5.0); EOSINOPHILS % (AUTO) 8.2 % (0.0-8.0); HEMATOCRIT 40.9 % (42-54); LYMPHOCYTES % (AUTO) 26.2 % (21.0-51.0); MEAN CORPUSCULAR HGB CONC 33.7 g/dL (32.0-36.0); MEAN CORPUSCULAR VOLUME 85.9 fL (79-99); NEUTROPHILS % (AUTO) 54.4 % (40.0-77.0); PLATELET COUNT (AUTO) 147 K/uL (130-400); RED BLOOD CELL COUNT(AUTO) 4.76 MIL/uL (4.50-6.20); RED CELL DISTRIBUTION WIDTH 12.9 % (11.0-15.5); WHITE BLOOD COUNT (AUTO) 6.1 K/uL (4.8-10.8)
[2020-06-10] MEDS: LORAZEPAM 2 MG/ML 1 ML VIAL IVP PRN (05:32)
[2020-06-10 05:55] LABS: ALANINE AMINOTRANSFERASE 87 U/L (12-78); ALBUMIN 2.9 g/dL (3.5-5.0); ALCOHOL, BLOOD < 3 mg/dL (0-10); ASPARTATE AMINOTRANSFERASE 205 U/L (10-37); BILIRUBIN,TOTAL 0.6 mg/dL (0.2-1.0); CARBON DIOXIDE 28 mmol/L (21-32); CHLORIDE 105 mmol/L (101-111); GLOMERULAR FILTR. RATE CALC 86 mL/min (>60); GLUCOSE,RANDOM 108 mg/dL (70-105); POTASSIUM 3.5 mmol/L (3.5-5.1); SODIUM SERUM 143 mmol/L (136-145); TOTAL PROTEIN, SERUM 6.4 g/dL (6.0-8.3); UREA NITROGEN, BLOOD 11 mg/dL (7-18)
[2020-06-10 06:17] LABS: CREATINE KINASE, TOTAL 6873 U/L (21-232)
[2020-06-10] MEDS: POTASSIUM CHLORIDE 20 MEQ ERTAB PO PRN ×2 (06:35→22:57)
--- NOTE | 2020-06-10 06:38 | NUR ---
paged doctor [place] [id number]. pending call back
--- NOTE | 2020-06-10 06:41 | NUR ---
texted doctor marianela the total creatinine kinase level. pending call back
--- NOTE | 2020-06-10 06:45 | NUR ---
texted marian sommer, the total creatinine kinase results 6,873. pending text back
[2020-06-10 07:30] VITALS: BP 119/77
[2020-06-10 11:00] VITALS: BP 103/75
[2020-06-10] MEDS: FAMOTIDINE/PF 20 MG/2 ML VIAL IV SCH ×2 (11:53→21:30)
[2020-06-10] MEDS: MULTIVITAMIN TABLET PO SCH (11:53)
[2020-06-10] MEDS: HEPARIN SODIUM 5000UNIT/ML 1ML VIAL SQ SCH ×3 (11:54→21:36)
[2020-06-10] MEDS: LACTATED RINGERS 1000ML 1,000 ML IV SCH ×2 (12:03→21:31)
[2020-06-10 16:00] VITALS: BP 146/97
--- NOTE | 2020-06-10 20:00 | NUR ---
CALM Pt resting in bed,eyes closed.Respirations even and unlabored.Calm,arousable.Oriented x 3.Sitter outside watching 2:1 pt ratio.
[2020-06-10 20:10] VITALS: BP 155/95
[2020-06-10] MEDS: ACETAMINOPHEN 325 MG TAB PO PRN (22:10)
--- NOTE | 2020-06-10 22:30 | NUR ---
HEADACHE Pt c/o of mild headache,medicated with Tylenol.
--- NOTE | 2020-06-10 22:44 | NUR ---
WOUND CARE Pt has skin tear to rt wrist,cleansed with Ns,covered with tegaderm.Left wrist abrasion dry,open to air.
[2020-06-10 23:15] VITALS: BP 131/85
--- NOTE | 2020-06-10 23:28 | NUR ---
CALM Pt awake,alert,oriented.Denies pain or discomfort.Calm,cooperative.
[2020-06-11] MEDS: OLANZAPINE ODT 5 MG TAB SL SCH ×5 (00:08→23:30)
[2020-06-11] MEDS: CHLORDIAZEPOXIDE HCL 25 MG CAP PO PRN (01:35)
[2020-06-11] MEDS: ACETAMINOPHEN 325 MG TAB PO PRN (03:37)
[2020-06-11 05:09] VITALS: BP 144/89
[2020-06-11] MEDS: LACTATED RINGERS 1000ML 1,000 ML IV SCH ×3 (05:47→19:35)
--- NOTE | 2020-06-11 06:14 | NUR ---
SLEEP Pt sleeping on a cardiac chair,he had an uneventful night.
[2020-06-11] MEDS: POTASSIUM CHLORIDE 20 MEQ ERTAB PO PRN ×2 (07:00→19:35)
[2020-06-11 07:52] VITALS: BP 126/88
[2020-06-11] MEDS: FAMOTIDINE/PF 20 MG/2 ML VIAL IV SCH ×2 (08:48→19:35)
[2020-06-11] MEDS: HEPARIN SODIUM 5000UNIT/ML 1ML VIAL SQ SCH ×3 (08:49→19:40)
[2020-06-11] MEDS: MULTIVITAMIN TABLET PO SCH (08:49)
[2020-06-11 11:36] VITALS: BP 126/70
--- NOTE | 2020-06-11 15:40 | NUR ---
[facility] consult Patient assessed as ordered. [facility] recommendations submitted. Addendum: 06/11/20 at 1555 by FARIDEH AVINA RN/ Amended: Links added.
[2020-06-11 16:11] VITALS: BP 117/93
[2020-06-11 19:36] VITALS: BP 112/72
--- NOTE | 2020-06-11 21:31 | NUR ---
SHOWER Pt took a shower,no agitation noted. New Piv started to rt forearm x 1 attempt.
[2020-06-12 00:23] VITALS: BP 106/84
--- NOTE | 2020-06-12 00:32 | NUR ---
IN BED Pt resting quietly in bed,eyes closed.Respirations even and unlabored.Sitter doing 2:1,watching pt at the door.
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
[2020-06-12 03:26] VITALS: BP 101/72
[2020-06-12] MEDS: LACTATED RINGERS 1000ML 1,000 ML IV SCH ×2 (05:33→20:42)
[2020-06-12] MEDS: OLANZAPINE ODT 5 MG TAB SL SCH ×4 (05:33→23:27)
[2020-06-12 05:52] LABS: BASOPHILS % (AUTO) 0.7 % (0.0-5.0); EOSINOPHILS % (AUTO) 6.8 % (0.0-8.0); HEMATOCRIT 41.8 % (42-54); MEAN CORPUSCULAR HEMOGLOBIN 29.1 pg (27.0-33.0); MEAN CORPUSCULAR HGB CONC 34.2 g/dL (32.0-36.0); MONOCYTES % (AUTO) 14.7 % (3.0-13.0); NEUTROPHILS % (AUTO) 50.5 % (40.0-77.0); PLATELET COUNT (AUTO) 191 K/uL (130-400); RED BLOOD CELL COUNT(AUTO) 4.92 MIL/uL (4.50-6.20); RED CELL DISTRIBUTION WIDTH 13.2 % (11.0-15.5); WHITE BLOOD COUNT (AUTO) 5.9 K/uL (4.8-10.8)
[2020-06-12 06:32] LABS: ALBUMIN 3.3 g/dL (3.5-5.0); BILIRUBIN,TOTAL 0.5 mg/dL (0.2-1.0); CREATININE 1.1 mg/dL (0.5-1.5); POTASSIUM 3.8 mmol/L (3.5-5.1); TOTAL PROTEIN, SERUM 6.9 g/dL (6.0-8.3)
[2020-06-12 08:00] VITALS: BP 123/87
[2020-06-12] MEDS: HEPARIN SODIUM 5000UNIT/ML 1ML VIAL SQ SCH ×3 (09:00→20:50)
[2020-06-12] MEDS: MULTIVITAMIN TABLET PO SCH (09:00)
[2020-06-12] MEDS: FAMOTIDINE/PF 20 MG/2 ML VIAL IV SCH ×2 (09:00→20:42)
[2020-06-12] MEDS: HONEY 1 APPL/ML TUBE TP SCH (09:00)
[2020-06-12 11:47] VITALS: BP 114/77
[2020-06-12] MEDS ORDERED: CHLORDIAZEPOXIDE HCL 25 MG CAP PO PRN (13:15)
[2020-06-12] MEDS ORDERED: LORAZEPAM 2 MG/ML 1 ML VIAL IVP PRN (13:15)
[2020-06-12] MEDS: FOLIC ACID 1 MG TABLET PO SCH (13:15)
[2020-06-12 16:00] VITALS: BP 119/86
[2020-06-12] MEDS: ACETAMINOPHEN EXTRA STRENGTH 500 MG TABLET PO PRN (18:57)
[2020-06-12 20:00] VITALS: BP 109/81
[2020-06-13] VITALS: BP 109/76
[2020-06-13 04:00] VITALS: BP 112/71
[2020-06-13 04:29] LABS: BASOPHILS % (AUTO) 0.9 % (0.0-5.0); HEMATOCRIT 42.5 % (42-54); LYMPHOCYTES % (AUTO) 33.5 % (21.0-51.0); MEAN CORPUSCULAR HEMOGLOBIN 28.7 pg (27.0-33.0); MEAN CORPUSCULAR HGB CONC 33.4 g/dL (32.0-36.0); MONOCYTES % (AUTO) 13.7 % (3.0-13.0); NEUTROPHILS % (AUTO) 44.5 % (40.0-77.0); PLATELET COUNT (AUTO) 210 K/uL (130-400); RED BLOOD CELL COUNT(AUTO) 4.94 MIL/uL (4.50-6.20); RED CELL DISTRIBUTION WIDTH 13.2 % (11.0-15.5); WHITE BLOOD COUNT (AUTO) 6.9 K/uL (4.8-10.8)
[2020-06-13 05:00] LABS: CREATININE 1.2 mg/dL (0.5-1.5); POTASSIUM 3.7 mmol/L (3.5-5.1)
[2020-06-13] MEDS: OLANZAPINE ODT 5 MG TAB SL SCH ×4 (05:36→23:35)
[2020-06-13] MEDS: LACTATED RINGERS 1000ML 1,000 ML IV SCH ×2 (05:50→13:15)
[2020-06-13 08:00] VITALS: BP 117/83
[2020-06-13] MEDS: FOLIC ACID 1 MG TABLET PO SCH ×2 (09:00→13:15)
[2020-06-13] MEDS: FAMOTIDINE/PF 20 MG/2 ML VIAL IV SCH ×2 (09:00→20:13)
[2020-06-13] MEDS: MULTIVITAMIN TABLET PO SCH (09:00)
[2020-06-13] MEDS: HEPARIN SODIUM 5000UNIT/ML 1ML VIAL SQ SCH ×3 (09:00→20:13)
[2020-06-13] MEDS: HONEY 1 APPL/ML TUBE TP SCH (09:00)
[2020-06-13 12:00] VITALS: BP 110/69
[2020-06-13] MEDS ORDERED: OLANZAPINE 5 MG TAB ONE ×2 (13:24→18:14)
[2020-06-13 16:00] VITALS: BP 112/81
[2020-06-13] MEDS: ACETAMINOPHEN 325 MG TAB PO PRN ×2 (18:15→23:35)
[2020-06-13 20:00] VITALS: BP 100/66
[2020-06-14] VITALS: BP 120/82
[2020-06-14] MEDS: LACTATED RINGERS 1000ML 1,000 ML IV SCH (03:51)
[2020-06-14 04:00] VITALS: BP 116/84
[2020-06-14 05:04] LABS: BASOPHILS % (AUTO) 0.7 % (0.0-5.0); EOSINOPHILS % (AUTO) 6.6 % (0.0-8.0); HEMATOCRIT 39.2 % (42-54); LYMPHOCYTES % (AUTO) 33.2 % (21.0-51.0); MEAN CORPUSCULAR HEMOGLOBIN 29.2 pg (27.0-33.0); MEAN CORPUSCULAR HGB CONC 33.9 g/dL (32.0-36.0); MEAN CORPUSCULAR VOLUME 86.2 fL (79-99); MONOCYTES % (AUTO) 14.5 % (3.0-13.0); NEUTROPHILS % (AUTO) 44.4 % (40.0-77.0); PLATELET COUNT (AUTO) 212 K/uL (130-400); RED BLOOD CELL COUNT(AUTO) 4.55 MIL/uL (4.50-6.20); RED CELL DISTRIBUTION WIDTH 13.2 % (11.0-15.5); WHITE BLOOD COUNT (AUTO) 6.8 K/uL (4.8-10.8)
[2020-06-14] MEDS: OLANZAPINE ODT 5 MG TAB SL SCH ×3 (05:25→17:21)
[2020-06-14 06:06] LABS: CREATININE 1.2 mg/dL (0.5-1.5); POTASSIUM 3.7 mmol/L (3.5-5.1)
[2020-06-14 07:30] VITALS: BP 112/81
--- NOTE | 2020-06-14 08:21 | NUR ---
RDSCREEB - LOS X 10 Pt admitted with EtOH abuse, Rhabdomyolysis. Pt reports good PO intake, resolved nausea. No food allergies. Obesity Class I. MVI, Folic Acid in place. Report of IV thiamine per ELEMENTARY ESL TEACHER note. Noted 2+ BUE edema as per EMR. Recommend continue Heart Healthy diet order Recommend continue MVI, Thiamine, Folic Acid RD to continue to monitor. Please notify as additional nutrition concerns arise. Thank you.
[2020-06-14] MEDS: MULTIVITAMIN TABLET PO SCH (08:33)
[2020-06-14] MEDS: FAMOTIDINE/PF 20 MG/2 ML VIAL IV SCH (08:33)
[2020-06-14] MEDS: FOLIC ACID 1 MG TABLET PO SCH ×2 (08:34→12:52)
[2020-06-14] MEDS: HEPARIN SODIUM 5000UNIT/ML 1ML VIAL SQ SCH ×2 (08:35→14:42)
[2020-06-14] MEDS: HONEY 1 APPL/ML TUBE TP SCH (08:38)
[2020-06-14 08:40] VITALS: BP 154/75
[2020-06-14 11:00] VITALS: BP 117/60
[2020-06-14] MEDS: ACETAMINOPHEN 325 MG TAB PO PRN (11:02)
--- NOTE | 2020-06-14 12:30 | NUR ---
DR. ISADORA SARMIENTO WAITING PROCESSING ENGINEER BACK Addendum: 06/14/20 at 1232 by ASHANTI CASTREJON RN RN WRONG PT
--- NOTE | 2020-06-14 13:05 | NUR ---
CM NOTE/PENDING MEDICAL CLEARANCE TOTAL CK OF 642. PER PRIMARY NURSE, ASHANTI NANE, PATIENT IS DOING WELL. THIS REPORTED TO PRIMARY HOSPITALIST, MATTHEW LARA, POSSIBLE MEDICAL CLEARANCE TODAY. ASHANTI ANNE INSTRUCTED THAT, IF MEDICALLY CLEARED, SHE IS TO CALL [facility] AT FOR ALCOHOL DEPENDENCE SCREENING PRIOR TO DISCHARGE. ASHANTI ANNE VERBALIZED UNDERSTANDING. CHARGE NURSE, FANNIE ANNE, MADE AWARE WELL.
--- NOTE | 2020-06-14 15:10 | NUR ---
TROPICAL WAITING LINUX DEVOPS ENGINEER FROM [facility] TO SCREEN PATIENT.
[2020-06-14 16:00] VITALS: BP 117/72
[2020-06-14] MEDS ORDERED: HONE44PA TP (17:23)
[2020-06-14] MEDS ORDERED: FOLI1 PO (17:23)
--- NOTE | 2020-06-14 18:30 | NUR ---
VICENTE SPOKE TO BERT MATIAS FROM [facility] PT DOESN'T MET REQUIREMENT FOR INPATIENT BUT WILL F/U A OUTPATIENT ON WEDNESDAY. VICENTE WITH CALL AND SPEAK WITH HIM TOMORROW.
--- NOTE | 2020-06-14 19:18 | NUR ---
D/C PT'S FAMILY IN TO TRANSPORT PT HOME. PT WHEELED DOWN BY CHARGE NURSE. D/C PT IN STABLE CONDITION.
== END 2020-06-14 19:27 | disposition home or self-care (01) | DRG 558 ==
LOC: EDH 12:52 → EDHIP 12:53 → 3DH 19:43
PROVIDERS: ADMIT Hospitalist; ATTEND Hospitalist
DX: M62.82 Rhabdomyolysis (principal); F10.239 Alcohol dependence with withdrawal, unspecified; F31.9 Bipolar disorder, unspecified; F41.9 Anxiety disorder, unspecified; F19.10 Other psychoactive substance abuse, uncomplicated; Y90.4 Blood alcohol level of 80-99 mg/100 ml; F14.90 Cocaine use, unspecified, uncomplicated; F29 Unspecified psychosis not due to a substance or known physiological condition; E66.9 Obesity, unspecified; F12.90 Cannabis use, unspecified, uncomplicated; Z68.32 Body mass index [BMI] 32.0-32.9, adult; S50.11XA Contusion of right forearm, initial encounter; Y93.89 Activity, other specified; Y92.89 Other specified places as the place of occurrence of the external cause; Y99.8 Other external cause status
CPT/HCPCS: 36415; 74018; 80048; 80053; 80305; 81001; 82140; 82550; 82948; 83735; 84100; 84132; 85025; 93005; 99291; G0378; G0481; J1644; J2060; J2405; J3411; J3486; J3490; J7030; J7120